=== PATIENT | male | born 1945 | race Caucasian/White ===

== ENCOUNTER 2019-05-13 15:06 | Observation (INO) ==
[2019-05-13 15:44] LABS: BASO# 0.02 X1000 (0.0-0.2); BASO% 0.2 % (0.0-0.8); EOS# 0.05 X1000 (0.0-0.7); EOS% 0.5 % (0.0-10.0); HEMATOCRIT 40.3 % (42.0-52.0); HEMOGLOBIN 13.2 g/dL (14.0-18.0); IMM GRAN# 0.05 X1000 (0.0-0.04); IMM GRAN% 0.5 % (0.0-0.5); LYMPH# 1.33 X1000 (1.2-3.4); LYMPH% 12.3 % (20.5-51.1); MCH 31.1 PG (27-31); MCHC 32.8 g/dL (33-37); MCV 94.8 FL (81-99); MONO# 1.24 X1000 (0.11-0.59); MONO% 11.5 % (1.7-9.3); MPV 9.6 FL (7.4-10.4); PLT 363 X1000 (130-400); RBC 4.25 XMIL (4.7-6.1); RDW 12.8 % (11.5-14.5); WBC 10.79 X1000 (4.8-10.8)
[2019-05-13 16:08] LABS: INR 1.12; PROTIME 14.6 Seconds (11.0-16.0)
[2019-05-13 16:09] LABS: PTT 30.2 Seconds (22.3-41.8)
[2019-05-13 16:11] LABS: AGAP 14; ALB/GLOB RATIO 0.9; ALBUMIN 3.5 g/dL (3.5-5.0); ALKALINE PHOSPHATASE 82 U/L (32-122); BUN 15 mg/dL (8-22); CALCIUM 9.1 mg/dL (8.8-10.2); CHLORIDE 103 mmol/L (98-107); COSMO 285; ESTIMATED GFR > 60; GLUCOSE 112 mg/dL (70-104); GOT 22 U/L (10-34); GPT 39 U/L (10-44); POTASSIUM 3.8 mmol/L (3.5-5.1); SODIUM 142 mmol/L (136-145); TCO2 25 mmol/L (25-35); TOTAL BILIRUBIN 0.74 mg/dL (0.20-1.00); TOTAL PROTEIN 7.5 g/dL (6.3-8.3)
--- NOTE | 2019-05-13 18:02 | PROVIDER DOCUMENTATION ---
This chart was entered by Aimee Hernández Scribe, acting as scribe for Walter Luong MD. HPI-General Adult - General Chief Complaint: Extremity Pain Stated Complaint: DR WILKS REFERRED Time Seen by Provider: 05/13/19 15:19 Source: patient, family () - History of Present Illness -Gen Adult Nature of Presenting Problems: 73 yowm p[resents to the ed with complaint of RLE pain for 4 days. pt is hard of hearing but otherwise denies PMH. pt on exam is nontoxic in appearance and c/o RLE pain but otherwise is at baseline. Location of Pain/Injury: reports: lower extremity (rt) Quality of Pain: reports: aching Severity: reports: moderate Onset/Duration: reports: 4 days ago Timing: reports: still present, intermittent Context/Activities at Onset: reports: light activity Modifying Factors: improves with: nothing. worse with: palpation Associated Symptoms: reports: other (RLE pain). denies: back/neck pain, chest pain, diarrhea, fever/chills, nausea, shortness of breath, vomiting Similar Symptoms Previously?: No Recently seen or treated by another doctor?: Yes (pcp dr wilks) Review of Systems - Adult - REVIEW OF SYSTEMS - ADULT Constitutional: denies: chills, fever Eyes: reports: no symptoms reported Ears, Nose, Mouth & Throat: reports: no symptoms reported Cardiovascular: denies: chest pain, palpitations, syncope Respiratory: denies: cough, shortness of breath, wheezing Gastrointestinal: denies: abdominal pain, diarrhea, nausea, vomiting Genitourinary: reports: no symptoms reported Musculoskeletal: reports: see HPI, other (RLE) Integumentary: reports: no symptoms reported Neurological: reports: no symptoms reported Psychiatric: reports: no symptoms reported Endocrine: reports: no symptoms reported Hematologic/Lymphatic: reports: no symptoms reported Allergic/Immunologic: reports: no symptoms reported All Other Systems: Reviewed and Negative Past History - Adult - PAST MEDICAL HISTORY-ADULT Review of Records: reports: Old Records Reviewed, Nursing Assessment Review, Medications Reviewed, Social history reviewed & non-contributory. Major Childhood Illnesses: reports: denies history Cardiovascular: reports: denies history Respiratory: reports: denies history Gastrointestinal: reports: denies history Genitourinary: reports: denies history Musculoskeletal: reports: denies history Neurological: reports: denies history Endocrine/Immune: reports: denies history Other Conditions: reports: deaf/hard of hearing - IMMUNIZATION STATUS Childhood Immunizations: See Nurse Assessment Flu Vaccine: See Nurse Assessment - FAMILY HISTORY Family History: reviewed, not pertinent - SOCIAL HISTORY Smoking: denies Substance Use: denies Living Situation: family Physical Exam-General - PHYSICAL EXAM-ADULT Initial Vital Signs Reviewed: Yes - CONSTITUTIONAL General Appearance: appears well, alert, no apparent distress - EYES Eyes: PERRL/EOMI, pink conjunctivae - HEAD, EARS, NOSE, MOUTH & THROAT HENMT: moist mucous membranes - NECK Neck: non-tender, full range of motion, supple, normal inspection - RESPIRATORY Respiratory: chest non-tender, lungs clear, normal breath sounds - CARDIOVASCULAR Cardiovascular: normal peripheral pulses, regular rate, rhythm - CHEST (BREASTS) Chest/Breast: deferred - GASTROINTESTINAL (ABDOMEN) Abdominal Exam: normal bowel sounds, non tender, soft - GENITOURINARY Male Genitalia: deferred Rectal Exam: deferred Hemoccult Exam: deferred - LYMPHATIC Lymphatic: no adenopathy - MUSCULOSKELETAL Back Exam: normal inspection, no CVA tenderness, no vertebral tenderness Extremity: normal inspection, normal capillary refill, pelvis stable, tenderness (RLE known DVT by US at pcp office). negative: erythema - SKIN Integumentary: normal color, normal turgor, warm/dry - NEUROLOGIC Neurologic: grossly normal - PSYCHIATRIC Psych/Mental Status: normal mood/affect, normal thought content, normal thought process, oriented x 3 Progress - PLAN OF CARE/RESULTS Progress/Plan/Lab Results: Vital Signs - 8 hr 05/13/19 15:16 Temperature 98.2 F Pulse Rate 87 Respiratory Rate 16 Blood Pressure 170/97 O2 Sat by Pulse Oximetry 98 Orders Category Date Time Status CBC WITH ELECTRONIC DIFF [HEME] Stat Lab 05/13/19 15:23 Results COMPREHENSIVE METABOLIC PANEL [CHEM] Stat Lab 05/13/19 15:23 Received D-DIMER [COAG] Stat Lab 05/13/19 15:23 Received PROTIME WITH INR [COAG] Stat Lab 05/13/19 15:23 Received PTT [COAG] Stat Lab 05/13/19 15:23 Received Large DVT seen on CD provided from study pt had today. Result Diagrams: 05/13/19 15:23 05/13/19 15:23 - REASSESSMENT Reassessment #1 Time Reassessed: 15:53 (has copy of Dop on CD from PCP) Status: unchanged - CONSULTS/PCP/HOSPITALIST Notification #1 *Consult/PCP/Hospitalist*: Dr Camacho Time Discussed: 18:08 Consult Disposition: Will see in ED, Admit Departure - Departure Date of Disposition Decision: 05/13/19 Time of Disposition Decision: 18:09 DIAGNOSIS: DVT (deep venous thrombosis) Disposition: ADMITTED INPATIENT 09 Certified Medical Emergency: Emergent Condition: Fair Referrals and Follow-Ups: None,PCP [Primary Care Provider] - - Critical Care Note This patient required my direct & personal management of CC.: No Attestation - Physician/ SALLY Attestation Patient care was provided by Advanced Practice Provider:: No The physician spent face to face time with patient:: Yes Advanced Practice Provider documentation review:: Supervising physician onsite a nd consulted in the evaluation and care of this patient. The physician did have a face to face encounter with the patient. This chart was documented by the indicated scribe, (Aimee Hernández Scribe) and accurately reflects the services I performed and decisions made by me, Walter Luong MD, as attested by the provider's signature.
[2019-05-13] MEDS ORDERED: LOVENOX SUBQ ONE (19:30)
--- NOTE | 2019-05-13 22:01 | HISTORY AND PHYSICAL ---
CHIEF COMPLAINT: Leg pain. HISTORY OF PRESENT ILLNESS: This is a 73-year-old male with no major medical problems, who came in with pain in his right leg. Reportedly, this was as an outpatient. He has had pain in that leg for about 4 days. He states that he was working on [employer] gutters and he was standing for a prolonged period of time, multiple times, for a long time. He noticed after that, that is when he had pain. Workup in the ER was really unremarkable. He denies any chest pain, any shortness of breath, any cough. D-dimer was positive and again his Dopplers were done as an outpatient, although he says he does not have a PCP, so I am not sure and he had a popliteal DVT by report. I do not have the actual Dopplers. He is referred by Dr. Kai Peoples. In any case, the patient was admitted for acute DVT, right lower extremity popliteal. PAST MEDICAL HISTORY: Denies. He said he had hypertension, but he is not taking any medications. PAST SURGICAL HISTORY: He has had a right hernia repair. FAMILY HISTORY: No DVT. No CAD. No cancer. SOCIAL HISTORY: No tobacco. No ethanol. ALLERGIES: No known drug allergies. MEDICATIONS: Denies. REVIEW OF SYSTEMS: Weight loss: Denies. Cardiovascular: No chest pain. No shortness of breath. No palpitations. Pulmonary: No shortness of breath or cough. GI: No nausea, vomiting, diarrhea, constipation, hematochezia. No melena. Neuro: No syncope. No paresthesias. No muscle weakness. Otherwise negative x10 point review of systems. PHYSICAL EXAM: VITAL SIGNS: Blood pressure 160/94, heart rate of 84, respiratory rate of 21, temperature 98.2 degrees. GENERAL: Thin male in no acute distress. A little bit hard of hearing, but otherwise okay. EYE EXAM: Pupils equal, round, reactive to light. Extraocular moves were intact. EAR NOSE AND THROAT EXAM: He had moist mucous membranes. NECK EXAM: Was supple. CARDIOVASCULAR: Was regular rate and rhythm. PULMONARY: Bilateral breath sounds. Clear to auscultation. GI: Abdomen was soft, nontender, nondistended. Bowel sounds are positive. NEURO: Was nonfocal. LABORATORY DATA: White count 10, hemoglobin and hematocrit 13 and 40, platelets 363,000. D-dimer 5.29. Basic was normal. ASSESSMENT: A 73-year-old male with no real medical history here for an acute deep vein thrombosis. We will initiate therapy with Lovenox. I think we could convert him easily to oral agents tomorrow assuming his insurance will cover it, which I think it should and we will continue to follow. He has no evidence of hypoxia or tachycardia. Unclear at this time what onset this is. At his age it would be more consistent to have malignancy versus true thrombophilia, but we will pursue that workup. I will check a PSA level, TSH as well and follow. DISPOSITION: Pending his clinical status, but anticipate discharge in next 24 hours. cc: Jose Camacho MD
[2019-05-13] MEDS ORDERED: ZOFRAN IV PRN (22:16)
[2019-05-13] MEDS ORDERED: TYLENOL PO PRN (22:16)
[2019-05-13] MEDS ORDERED: ULTRAM PO PRN (22:16)
[2019-05-14] MEDS ORDERED: LOVENOX SUBQ SCH (07:00)
[2019-05-14 07:24] LABS: BASO# 0.03 X1000 (0.0-0.2); BASO% 0.3 % (0.0-0.8); EOS# 0.06 X1000 (0.0-0.7); EOS% 0.6 % (0.0-10.0); HEMATOCRIT 40.5 % (42.0-52.0); IMM GRAN# 0.06 X1000 (0.0-0.04); IMM GRAN% 0.6 % (0.0-0.5); LYMPH# 1.99 X1000 (1.2-3.4); LYMPH% 19.2 % (20.5-51.1); MCHC 32.1 g/dL (33-37); MCV 96.7 FL (81-99); MONO# 1.07 X1000 (0.11-0.59); MONO% 10.3 % (1.7-9.3); MPV 9.8 FL (7.4-10.4); NEUT# 7.14 X1000 (1.4-6.5); PLT 361 X1000 (130-400); RBC 4.19 XMIL (4.7-6.1); RDW 12.8 % (11.5-14.5); WBC 10.35 X1000 (4.8-10.8)
[2019-05-14 07:38] LABS: AGAP 12; BUN 15 mg/dL (8-22); CALCIUM 8.5 mg/dL (8.8-10.2); CHLORIDE 101 mmol/L (98-107); COSMO 281; CREATININE 0.9 mg/dL (0.7-1.2); ESTIMATED GFR > 60; GLUCOSE 108 mg/dL (70-104); POTASSIUM 3.5 mmol/L (3.5-5.1); SODIUM 140 mmol/L (136-145); TCO2 27 mmol/L (25-35)
[2019-05-14 08:52] VITALS: BP 146/80
--- NOTE | 2019-05-15 07:07 | DISCHARGE SUMMARY ---
ADMISSION DATE: 05/13/2019 DISCHARGE DATE: 05/14/2019 DISCHARGE DIAGNOSIS: Deep venous thrombosis. PROBLEM LIST: Right popliteal DVT. HISTORY: This 73-year-old male who has swelling and pain in there. We will continue to follow closely. His workup was really unremarkable. His hypercoagulable workup is pending. Really, homocystine is the only thing back. We had ordered a PSA, but apparently did not. We will see if we can add a PSA to his blood. In any case, he is unattached. He will go home on some treatment, and then continue to follow closely. DISPOSITION: Pending clinical status. DISCHARGE MEDICATIONS: Eliquis 10 b.i.d. for 7 days and then 5 b.i.d. afterwards. FOLLOW UP: He will need follow up with a primary care physician. We will try to set him up with someone locally and follow closely. cc: Jose Camacho MD
== END 2019-05-14 12:19 | disposition home or self-care (01) ==
LOC: 3N 15:06 → ED 15:06
PROVIDERS: ATTEND Internal Medicine